=== PATIENT | female | born 1970 | race African-American/Black ===

== ENCOUNTER → 2019-02-24 | Outpatient (CLI) | payer MEDICARE, OTHER ==
[~2019-02-24] MED LIST: ADVAIR 100-501 EACH INH; AMBIEN5 MG ORAL; ATIVAN0.5 MG ORAL; AZITHROMYCIN250 MG ORAL; CARDIZEM120 MG PO; CIPROFLOXACIN500 M2 ORAL; DIAZEPAM2 MG ORAL; DILAUDID4 MG ORAL; DIOVAN40 MG ORAL; DONNATAL TAB1 TAB ORAL; LACTULOSE20 GM/301 ORAL; LEVAQUIN500 MG ORAL; PREDNISONE20 MG ORAL; PROMETHAZI6.25 MG/1 ORAL; SAPHRIS5 MG SL; SINGULAIR10 MG ORAL; SPIRIVA18 MCG INH; TRAMADOL HCL50 MG ORAL; XOPENEX0.63 MG/3 HHN; ZOLOFT25 MG ORAL; ZYPREXA7.5 MG ORAL; [UNRECOGNIZED DRUG - OTHER] TP; benadryl ORAL
--- NOTE | 2019-02-24 15:17 | Diagnostic Imaging Report ---
Indication: Headache Technique: Contiguous 5 mm thick transaxial imaging of the head obtained in a Siemens Sensation [address] scanner[address] Soft tissue and bone windows generated. Automatic Exposure Control was utilized. Total Dose length Product (DLP): [address] Dose Index Volume (CTDIvol): 62.7 mGy Comparison: none Findings: There is mild prominence of the ventricles, basal cisterns, and cerebral sulci consistent with atrophy. Mild, nonspecific, white matter hypoattenuation is noted throughout the brain consistent with chronic small vessel disease. There is no midline shift, edema, acute hemorrhage, mass effect, or abnormal extra-axial fluid collections. Bones are unremarkable. Impression: No acute intracranial bleed, mass effect or edema. Mild atrophy of the brain. Nonspecific white matter hypoattenuation probably due to chronic small vessel disease. The CT scanner at [facility] is accredited by the [employer] and the scans are performed using dose optimization techniques as appropriate to a performed exam including Automatic Exposure control.
--- NOTE | 2019-02-24 15:22 | Diagnostic Imaging Report ---
Indication: Left-sided ear pain. History of mastoiditis Technique: Continuous helical transaxial imaging of the orbits/maxillofacial structures obtained without intravenous contrast administration. Coronal 2-D reformats were also obtained. Study obtained in a Siemens sensation [address] Automatic Exposure Control was utilized. Total Dose length Product (DLP): 657.[address] Dose Index Volume (CTDIvol): 25.1 mGy Comparison: None Findings: There is a minimal mucosal thickening in the ethmoid sinus. 8 mm fluid retention cyst noted in the left maxillary sinus. Mastoids are clear bilaterally. There are no air-fluid levels. Study was not obtained as a high-resolution temporal bone study but there are no obvious erosions identified. The middle ear canal is grossly patent. The ossicles are grossly unremarkable. IMPRESSION: Left maxillary 8 mm fluid retention cysts. Mild mucosal thickening in the ethmoid sinus. Negative exam otherwise The CT scanner at [facility] is accredited by the [employer] and the scans are performed using dose optimization techniques as appropriate to a performed exam including Automatic Exposure control.
== END | disposition home or self-care (01) ==
LOC: RAD 11:36
DX: R51 Headache (principal); G31.9 Degenerative disease of nervous system, unspecified
CPT/HCPCS: 70450; 70486